=== PATIENT | male | born 1995 | race African-American/Black ===

== ENCOUNTER 2020-09-16 09:52 | Outpatient (CLI) | payer OTHER ==
[2020-09-16 10:52] VITALS: BP 146/107
--- NOTE | 2020-09-16 10:52 | SLEEP CARE CONSULTATION ---
Information from patient questionnaire entered by Birdie Mars. I have reviewed and concur with the information entered by Birdie Mars. This document represents the service I personally performed and the decisions made by me, Molly Harrell ARNP. History of Present Illness Service Date and Time: 09/16/2020 0952 Reason for Visit: New patient Chief Complaint: reports: Unrefreshed sleep, Snoring, Excessive daytime sleepiness, Observed pauses in breathing, Fatigue, Frequent awakenings at night Date of Onset: 10 years Usual bedtime: 10 pm Time it takes to fall asleep: 2 minutes Snores at night: Yes Observed to quit breathing while asleep: Yes Sleeps alone due to snoring: Yes Number of times waking at night: 1 Reasons for waking at night: reports: Snoring, Bathroom Toss, Turn, or Twitch while sleeping: No Recalls having dreams: Yes Usually gets out of bed at: 6 am Feels refreshed in the morning: No Morning headache: No Sleepy or fatigued during the day: Yes Ever fallen asleep while driving: No (some drowsy driving with long drives) Takes day naps: No Dreams during day naps: Yes Prior sleep studies: No Additional HPI information: I had the pleasure of seeing DURGA CLARKE today regarding the possibility of him having a sleep disorder. His current complaints are excessive daytime sleepiness, fatigue, frequent night awakenings, observed pauses in breathing, snoring and unrefreshed sleep. He has borderline hypertension and is not on medication at this time. His snoring is loud and frequent, roommates have requested different room. He has had some pauses in breathing at night. He can feel rested in the morning but he is tire during the day. He gets up a few times a night. He changes shifts for his job from day to night regularly, he states "it is all over the place". - Parasomnia Symptoms Ever been unable to move upon waking from sleep: No Walks in sleep: No Talks in sleep: No Ever acted out dreams in sleep: No Ever felt weak in the knees when startled or emotional: No Bothered by creepy, crawly, restless sensations in legs: No Problems with memory or concentration: No Subjective Initial [place] Sleepiness Scale score: 18 (in 2020) Past Medical History Past Medical History: reports: Other (blood pressure is on borderline for hypertension) Social History The patient's occupation is a Active . Patient is Single and lives in [place]. Have you smoked in the past 12 months: Yes Cigarettes per day (20/pack): 2 Years of smokin Smoking Pack Years: 0.2 Alcohol use: Yes Alcohol amount and frequency: 3 cups 4 times a week Caffeine use: No Family History Family history of sleep disordered breathing: Yes Family Hx Sleep Apnea: Mother: Snoring, Grandparent: Snoring Allergies and Home Medications Drug allergies reviewed: Yes (NKDA) Home medication list reviewed: Yes (no daily medication) Review of Systems Cardiovascular: reports: high blood pressure (borderline) Gastrointestinal: denies: heartburn Neurological: denies: headaches Psychiatric: denies: Attention Deficit Hyperactivity, anxiety, depression, mood disorder Ear/Nose/Throat: reports: nasal congestion, sinus problems. denies: tonsillectomy, wisdom teeth removed Immunologic: reports: allergies to food or environment Physical Exam Blood Pressure: 146/107 Cuff size: wrist Heart Rate: 94 O2 Saturation: 98 Height: 6 ft 1 in Weight: 265 lb Body Mass Index: 34.9 BMI Classification: Obese Neck circumference: 17.5 (inches) Nostrils: patent to airflow Mouth and throat: narrow oropharynx Soft palate: long Hard palate: normal Uvula: normal Uvula visualization: 100% Mallampati Class I Tongue: normal in size Tonsils: 2+ Chin and jaw: normal size and position Neck: normal w/o lymphadenopathy or thyromegaly Heart: regular rate and rhythm Lungs: clear bilaterally Impression and Plan 1. Suspected Obstructive Sleep Apnea-Hypopnea Syndrome, as suggested by a history of loud and irregular snoring, observed cessation of breath while asleep, frequent awakening during the night, unrefreshed sleep, and excessive daytime sleepiness. Narrow oropharynx and obesity are common predisposing factors for obstructive sleep apnea-hypopnea syndrome. I recommend proceeding to polysomnography to confirm the diagnosis and to assess severity. If the patient has significant sleep disordered breathing, a manual CPAP titration study will also be performed to find the optimal treatment pressure. I informed the patient of what the sleep studies involve and after some discussion, obtained agreement to proceed. The pathophysiology of obstructive sleep apnea-hypopnea syndrome was discussed with the patient and health risks of cardiovascular and cerebrovas cular disease if not treated. 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 Patient agreed to plan. * Schedule polysomnography +- manual CPAP titration study and return in 1-2 weeks after the study to discuss result and initiate therapy. * Avoid long distance driving or driving when feeling sleepy. * Avoid alcohol, sedative and muscle relaxant around bedtime. * Attempt to lose weight. * Review instructions provided by trained office staff on how to prepare for the sleep study. * Return for follow-up after sleep study completed. Counseling Topics: Weight loss health impact Visit Type: In Office Time Spent with Patient (minutes): 30 Provider Statement: I spent 100% of the Face to Face Visit with the patient with greater than 50% spent counseling the patient and coordination of care.
== END 2020-09-16 09:53 | disposition home or self-care (01) ==
LOC: SC 09:52
PROVIDERS: ATTEND Nurse Practitioner Family
DX: G47.10 Hypersomnia, unspecified (principal); G47.8 Other sleep disorders; R06.83 Snoring; R06.81 Apnea, not elsewhere classified; F17.210 Nicotine dependence, cigarettes, uncomplicated; E66.9 Obesity, unspecified; Z68.34 Body mass index [BMI] 34.0-34.9, adult
CPT/HCPCS: 99203; 99212

== ENCOUNTER 2021-07-06 17:11 | Emergency (ER) | payer OTHER ==
[2021-07-06 17:35] LABS: RAPID STREP SCREEN Negative (Negative)
[2021-07-06] MEDS ORDERED: IBUPROFEN 800 MG TABLET PO STA (19:27)
[2021-07-06] MEDS ORDERED: PSEUDOEPHEDRINE 30 MG TABLET PO STA (19:27)
[2021-07-06] MEDS ORDERED: DEXAMETHASONE 10 MG/ML VIAL PO STA (19:27)
--- NOTE | 2021-07-06 19:35 | ED Physician Documentation ---
PD HPI URI - Stated complaint Stated Complaint: SORE THROAT/HEADACHE/BEATRIS/NAUSEA - Chief complaint Chief Complaint: Heent - History obtained from History obtained from: Patient - History of Present Illness Timing details: Gradual onset Pain level max: 7 Pain level now: 5 Associated symptoms: No: Dyspnea, NVD - Additional information Additional information: 26-year-old male presents to the emergency department complaining of a sore throat nasal congestion and dry cough for the past several days. Nasal drainage as well. Worse with swallowing, nothing makes it better. Review of Systems Nose: reports: Rhinorrhea / runny nose, Congestion Throat: reports: Sore throat GI: denies: Vomiting, Diarrhea Skin: denies: Rash Musculoskeletal: denies: Neck pain, Back pain Neurologic: denies: Headache PD PAST MEDICAL HISTORY - Past Medical History Past Medical History: Yes Cardiovascular: None Respiratory: None Neuro: Headaches Endocrine/Autoimmune: None GI: None : None HEENT: None Psych: None Musculoskeletal: None Derm: None - Past Surgical History Past Surgical History: No - Present Medications Home Medications: Ambulatory Orders Medication Instructions Recorded Confirmed Cetirizine HCl/Pseudoephedrine 1 each PO BID PRN #30 ea 07/06/21 [Zyrtec-D Tablet] Ibuprofen [Motrin] 800 mg PO Q8H PRN #30 tablet 07/06/21 - Allergies Allergies/Adverse Reactions: Allergies Allergy/AdvReac Type Severity Reaction Status Date / Time No Known Drug Allergies Allergy Verified 07/06/21 17:20 - Social History Does the pt smoke?: No Smoking Status: Never smoker Does the pt drink ETOH?: No Does the pt have substance abuse?: No - Immunizations Immunizations are current?: Yes - POLST Patient has POLST: No PD ED PE NORMAL - Vitals Vital signs reviewed: Yes - General General: Alert and oriented X 3, No acute distress - HEENT HEENT: Moist mucous membranes, Other (Posterior oropharyngeal erythema without tonsillar exudate. Uvula midline. Normal phonation. No trismus.) - Neck Neck: Supple, no meningeal sign, No adenopathy - Cardiac Cardiac: RRR, Strong equal pulses - Respiratory Respiratory: No respiratory distress, Clear bilaterally - Abdomen Abdomen: Soft, Non tender, Non distended - Derm Derm: Warm and dry, No rash - Neuro Neuro: Alert and oriented X 3 - Psych Psych: Normal mood, Normal affect Results - Vitals Vitals: Vital Signs - 24 hr 07/06/21 19:55 Heart Rate 107 H Respiratory 20 Rate Blood Pressure 209/107 H O2 Saturation 96 Oxygen O2 Source Room air - Labs Labs: Microbiology 07/06/21 17:20 Group A Strep Throat Culture - Preliminary Throat Laboratory Tests 07/06/21 17:20 Group A Strep Rapid Negative PD MEDICAL DECISION MAKING - ED course Complexity details: reviewed results, considered differential, d/w patient ED course: 26-year-old male with what appears to be a viral upper respiratory infection and pharyngitis. Given dexamethasone for swelling. We will continue supportive care and have him follow-up with his doctor for further care. Rapid strep is negative. Patient counseled regarding signs and symptoms for which I believe and urgent re-evaluation would be necessary. Patient with good understanding of and agreement to plan and is comfortable going home at this time This document was made in part using voice recognition software. While efforts are made to proofread this document, sound alike and grammatical errors may occur. Departure - Departure Disposition: 01 Home, Self Care Clinical Impression: Viral URI, Viral pharyngitis Condition: Good Instructions: ED Pharyngitis Viral, ED Viral Syndrome Follow-Up: ANGEL GEE MD [Primary Care Provider] - Within 1 week Prescriptions: Ibuprofen [Motrin] 800 mg PO Q8H PRN #30 tablet PRN Reason: PAIN &/OR FEVER Cetirizine HCl/Pseudoephedrine [Zyrtec-D Tablet] 1 each PO BID PRN #30 ea PRN Reason: nasal congestion Comments: Your prescriptions were sent to [facility] in [place]. Please follow-up with your doctor for further care. Drink plenty of fluids and rest. Return if you worsen. Your rapid strep test was negative. If your throat culture is positive, we will call you for antibiotics. You have a Covid test pending. You need to self quarantine until the result is done and negative. The results should be done in 24-48 hours. We will call with a positive result, the fastest way to get a negative result for confirmation though is to go to the hospital website at [email or web address], click on the my [facility] tab and sign up for the patient portal. If any of your friends and/or family need to be tested, they can call the hospital at [phone] for an appointment to have their Covid test. Discharge Date/Time: 07/06/21 19:57
[2021-07-06 19:56] VITALS: BP 209/107
== END 2021-07-06 19:57 | disposition home or self-care (01) ==
LOC: ED 17:11
DX: J06.9 Acute upper respiratory infection, unspecified (principal); J02.9 Acute pharyngitis, unspecified; Z20.822 Contact with and (suspected) exposure to COVID-19
CPT/HCPCS: 87070; 87430; 87635; 99283; A9270

== ENCOUNTER 2023-09-19 14:54 | Emergency (ER) | payer OTHER ==
--- NOTE | 2023-09-19 16:14 | XRAY Report ---
PROCEDURE: Chest 2V INDICATIONS: COUGH/SOA TECHNIQUE: 2 views of the chest were acquired. COMPARISON: None. FINDINGS: Surgical changes and devices: None. Lungs and pleura: No pleural effusions or pneumothorax. Elevation of the right hemidiaphragm. Lungs are clear. Mediastinum: Mediastinal contours appear normal. Heart size is enlarged. Bones and chest wall: No suspicious bony lesions. Overlying soft tissues appear unremarkable. IMPRESSION: Cardiomegaly. The lungs are clear. Reviewed by: Otto Gates MD on 09/19/2023 4:13 PM PDT Approved by: Otto Gates MD on 09/19/2023 4:13 PM PDT Station ID: [id number]
[2023-09-19 16:27] LABS: B. PARAPERTUSSIS- RESP PCR PAN NOT DETECTED; B. PERTUSSIS- RESP PCR PANEL NOT DETECTED; C. PNEUMONIAE- RESP PCR PANEL NOT DETECTED; CORONAVIRUS 229E-RESP PCR NOT DETECTED; CORONAVIRUS HKU1-RESP PCR NOT DETECTED; CORONAVIRUS NL63-RESP PCR NOT DETECTED; CORONAVIRUS OC43-RESP PCR NOT DETECTED; HUMAN METAPNEUMOVIRUS NOT DETECTED; INFLUENZA A- RESP PCR PANEL NOT DETECTED; INFLUENZA B - RESP PCR PANEL NOT DETECTED; M. PNEUMONIAE- RESP PCR PANEL NOT DETECTED; PARAINFLUENZA VIRUS 1 NOT DETECTED; PARAINFLUENZA VIRUS 2 NOT DETECTED; PARAINFLUENZA VIRUS 3 DETECTED; PARAINFLUENZA VIRUS 4 NOT DETECTED; RHINOVIRUS/ENTEROVIRUS NOT DETECTED; RSV- RESP PCR PANEL NOT DETECTED; SARS-CoV-2 -RESP PCR PANEL NOT DETECTED
--- NOTE | 2023-09-19 18:22 | ED Physician Documentation ---
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 He denies any fevers. He states his feet and legs were swollen this morning when he woke up. He states that he likely has sleep apnea but has never been diagnosed. Does not use a CPAP machine. States he does not routinely use any medications at home. Does have an albuterol inhaler. He does vape. Does not have any cardiac history. No abdominal pain, nausea, vomiting. No rashes. He states that he has had a small amount of diarrhea, nonbloody. Review of Systems Constitutional: denies: Fever, Chills Throat: denies: Sore throat Cardiac: denies: Chest pain / pressure, Palpitations, Calf pain Respiratory: reports: Dyspnea : denies: Dysuria PD PAST MEDICAL HISTORY - Past Medical History Past Medical History: Yes Cardiovascular: None Respiratory: None Neuro: Headaches Endocrine/Autoimmune: None GI: None : None HEENT: None Psych: None Musculoskeletal: None Derm: None - Past Surgical History Past Surgical History: No - Present Medications Home Medications: Ambulatory Orders Medication Instructions Recorded Confirmed No Known Home Medications 09/19/23 09/19/23 - Allergies Allergies/Adverse Reactions: Allergies Allergy/AdvReac Type Severity Reaction Status Date / Time No Known Drug Allergies Allergy Verified 09/19/23 15:13 - Social History Does the pt smoke?: No Smoking Status: Never smoker Does the pt drink ETOH?: No Does the pt have substance abuse?: No - Immunizations Immunizations are current?: Yes - POLST Patient has POLST: No PD ED PE NORMAL - Vitals Vital signs reviewed: Yes - General General: Alert and oriented X 3, No acute distress, Well developed/nourished - HEENT HEENT: Moist mucous membranes - Neck Neck: Supple, no meningeal sign - Cardiac Cardiac: RRR, No murmur, Strong equal pulses - Respiratory Respiratory: No respiratory distress, Clear bilaterally - Abdomen Abdomen: Soft, Non tender, Non distended - Derm Derm: Warm and dry - Extremities Extremities: Other (2+ B LE pitting edema) - Neuro Neuro: Alert and oriented X 3 - Psych Psych: Normal mood, Normal affect Results - Vitals Vitals: Vital Signs - 24 hr 09/19/23 09/19/23 09/19/23 15:04 18:15 18:40 Temperature 37.0 C Heart Rate 127 H 125 H 127 H Respiratory 16 29 H 24 Rate Blood Pressure 166/130 H 188/143 H O2 Saturation 98 98 09/19/23 09/19/23 09/19/23 20:30 21:00 21:45 Temperature Heart Rate 120 H 121 H 121 H Respiratory 34 H 33 H 20 Rate Blood Pressure 190/140 H 183/142 H 182/117 H O2 Saturation 98 99 97 09/19/23 09/19/23 22:00 22:30 Temperature Heart Rate 124 H 122 H Respiratory 33 H 25 H Rate Blood Pressure 190/123 H 176/127 H O2 Saturation 97 95 Oxygen O2 Source Room air - EKG (time done) 1839 EKG releavant findings:: EKG personally interpreted by author of this note. Relevant findings are: Rate: Rate (enter#) (125) Rhythm: Sinus tachycardia [place]: Normal Intervals: Normal PA QRS: Normal Ischemia: Normal ST segments - Labs Labs: Laboratory Tests 09/19/23 09/19/23 09/19/23 15:11 18:25 18:25 WBC 7.6 RBC 4.42 L Hgb 14.8 Hct 45.4 MCV 102.7 H MCH 33.5 H MCHC 32.6 RDW 13.2 Plt Count 338 MPV 8.5 Neut # (Auto) 5.4 Lymph # (Auto) 1.0 L [place] # (Auto) 1.0 Eos # (Auto) 0.2 Baso # (Auto) 0.1 Absolute Nucleated RBC 0.00 Nucleated RBC % 0.0 ESR Sodium 138 Potassium 3.6 Chloride 102 Carbon Dioxide 27 Anion Gap 9.0 BUN 12 Creatinine 1.4 H Estimated GFR (MDRD) 74 L Glucose 89 Calcium 9.8 Total Bilirubin 2.9 H AST 32 ALT 20 Alkaline Phosphatase 51 Troponin I High Sens 69.9 H* C-Reactive Protein B-Natriuretic Peptide Total Protein 6.9 Albumin 4.3 Globulin 2.6 Albumin/Globulin Ratio 1.7 Lipase 19 Nasal Adenovirus (PCR) NOT DETECTED Nasal B. parapertussis DNA (PCR) NOT DETECTED Nasal Coronavir 229E PCR NOT DETECTED Nasal Coronavir HKU1 PCR NOT DETECTED Nasal Coronavir NL63 PCR NOT DETECTED Nasal Coronavir OC43 PCR NOT DETECTED Nasal Enterovir/Rhinovir PCR NOT DETECTED Nasal Influenza B PCR NOT DETECTED Nasal Influenza A PCR NOT DETECTED Nasal Parainfluen 1 PCR NOT DETECTED Nasal Parainfluen 2 PCR NOT DETECTED Nasal Parainfluen 3 PCR DETECTED A Nasal Parainfluen 4 PCR NOT DETECTED Nasal RSV (PCR) NOT DETECTED Nasal B.pertussis DNA PCR NOT DETECTED Nasal C.pneumoniae (PCR) NOT DETECTED Edison Human Metapneumo PCR NOT DETECTED Nasal M.pneumoniae (PCR) NOT DETECTED Nasal SARS-CoV-2 (PCR) NOT DETECTED 09/19/23 09/19/23 09/19/23 18:25 18:25 20:55 WBC RBC Hgb Hct MCV MCH MCHC RDW Plt Count MPV Neut # (Auto) Lymph # (Auto) [place] # (Auto) Eos # (Auto) Baso # (Auto) Absolute Nucleated RBC Nucleated RBC % ESR 1 Sodium Potassium Chloride Carbon Dioxide Anion Gap BUN Creatinine Estimated GFR (MDRD) Glucose Calcium Total Bilirubin AST ALT Alkaline Phosphatase Troponin I High Sens C-Reactive Protein 1.0 H B-Natriuretic Peptide 1795 H Total Protein Albumin Globulin Albumin/Globulin Ratio Lipase Nasal Adenovirus (PCR) Nasal B. parapertussis DNA (PCR) Nasal Coronavir 229E PCR Nasal Coronavir HKU1 PCR Nasal Coronavir NL63 PCR Nasal Coronavir OC43 PCR Nasal Enterovir/Rhinovir PCR Nasal Influenza B PCR Nasal Influenza A PCR Nasal Parainfluen 1 PCR Nasal Parainfluen 2 PCR Nasal Parainfluen 3 PCR Nasal Parainfluen 4 PCR Nasal RSV (PCR) Nasal B.pertussis DNA PCR Nasal C.pneumoniae (PCR) Edison Human Metapneumo PCR Nasal M.pneumoniae (PCR) Nasal SARS-CoV-2 (PCR) - Rads (name of study) cxr Relevant Findings:: Final report received, See rad report PD Medical Decision Making - ED course Complexity details: reviewed results, re-evaluated patient, considered d ifferential, d/w patient, d/w family, d/w physician practice consultant ED course: 28-year-old male presents to the emergency department with viral URI symptoms for the past several weeks. He is complaining of new onset of bilateral pedal and lower extremity edema that started today. Chest x-ray has significant cardiomegaly. BNP is significantly elevated. Mild high-sensitivity troponin elevation. EKG is consistent with sinus tachycardia. Patient denies any other past medical history. 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 No cardiology available here. Patient will need transfer for further care. Discussed the case with Dr. Hay, cardiology at [facility]. Recommends transfer for echocardiogram and cardiology consultation. There are no beds available for [facility] however. [facility] did have a bed, spoke with Dr. Solis, cardiology who graciously accepts in transfer. Patient was given a dose of lisinopril, 10 mg orally here for hypertension as well as 40 mg of IV Lasix. COBRA forms completed. Patient transferred. 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
[2023-09-19 18:29] LABS: BASOPHILS # (AUTO) 0.1 10^3/uL (0.0-0.1); BASOPHILS % (AUTO) 0.8 %; EOSINOPHILS # (AUTO) 0.2 10^3/uL (0.0-0.7); EOSINOPHILS % (AUTO) 2.1 %; HCT - HEMATOCRIT 45.4 % (42.0-52.0); HGB - HEMOGLOBIN 14.8 g/dL (14.0-18.0); LYMPHOCYTES % (AUTO) 12.9 %; MEAN CORPUSCULAR HEMOGLOBIN 33.5 pg (27.0-31.0); MEAN CORPUSCULAR HGB CONC 32.6 g/dL (32.0-36.0); MEAN CORPUSCULAR VOLUME 102.7 fL (80.0-94.0); MEAN PLATELET VOLUME 8.5 fL (7.4-11.4); NEUTROPHILS # (AUTO) 5.4 10^3/uL (1.5-6.6); NEUTROPHILS % (AUTO) 70.9 %; PLT - PLATELET COUNT 338 10^3/uL (130-450); RED BLOOD COUNT 4.42 10^6/uL (4.70-6.10); RED CELL DISTRIBUTION WIDTH 13.2 % (12.0-15.0); WHITE BLOOD COUNT 7.6 x10^3/uL (4.8-10.8)
[2023-09-19] MEDS: SODIUM CHLORIDE 0.9% 1,000 ML IV STA (18:32)
[2023-09-19] MEDS: IPRATROPIUM/ALBUTEROL 3 ML NEB INH STA (18:40)
[2023-09-19 18:52] LABS: ALBUMIN 4.3 g/dL (3.2-5.5); ALBUMIN/GLOBULIN RATIO 1.7 (1.0-2.2); BILIRUBIN,TOTAL 2.9 mg/dL (0.2-1.0); CALCIUM 9.8 mg/dL (8.5-10.3); CREATININE 1.4 mg/dL (0.6-1.3); POTASSIUM 3.6 mmol/L (3.5-4.5); TOTAL PROTEIN 6.9 g/dL (6.4-8.9)
[2023-09-19 18:55] LABS: TROPONIN I HIGH SENSITIVITY 69.9 ng/L (2.3-19.7)
[2023-09-19] MEDS: lisinopriL 5 MG TABLET PO STA (20:51)
[2023-09-19] MEDS: FUROSEMIDE 40 MG/4 ML VIAL IVP STA (22:12)
[2023-09-19 23:25] LABS: BILIRUBIN,URINE NEGATIVE (NEGATIVE); GLUCOSE, URINE (UA) NEGATIVE (NEGATIVE); KETONES,URINE (UA) NEGATIVE (NEGATIVE); LEUKOCYTE ESTERASE, URINE NEGATIVE (NEGATIVE); NITRITE,URINE NEGATIVE (NEGATIVE); OCCULT BLOOD,URINE TRACE-INTA (NEGATIVE); PH,URINE 6.5 PH (5.0-7.5); PROTEIN,URINE NEGATIVE (NEGATIVE); UROBILINOGEN,URINE 0.2 (NORMAL) E.U./dL (NORMAL)
[2023-09-19 23:40] LABS: CLARITY,URINE CLEAR (CLEAR)
[2023-09-20] MEDS: NITROGLYCERIN 2% PASTE TOP STA (00:30)
[2023-09-20] MEDS: carvediloL 3.125 MG TABLET PO SCH (01:32)
[2023-09-20] MEDS: hydrALAZINE 25 MG TABLET PO SCH (01:32)
[2023-09-20] MEDS: guaiFENesin/CODEINE 5 ML UDC PO STA (02:00)
[2023-09-20 03:36] VITALS: BP 132/79; O2SAT 94
--- NOTE | 2023-09-20 03:47 | ED Physician Documentation ---
ED Addendum - Addendum Addendum: 09/20/23 03:34 The patient was signed out to me at change of shift, pending transfer after presenting to the emergency department with persistent cough and exertional dyspnea. The patient was found to have marked cardiomegaly, lower extremity edema, a significantly elevated BNP at 1700, elevated troponin at 69, elevated creatinine at 1.4 without corresponding BUN elevation, persistent tachycardia, hypertension, and normal O2 saturation on room air. Dr. Parrish had spoken with Dr. Solis for cardiology at [facility] as well as cardiology [facility] and both had agreed that the patient to come to a center with cardiology and the ability to do echo and a more specific cardiology workup, neither of which we have at our hospital. [facility] had informed us that they had beds and that they would notify the hospitalist that Dr. Solis had accepted the patient and the hospitalist needed to handle the primary admission. Upon calling the [facility] transfer center, we were informed that the hospitalist was questioning why the patient should be transferred and was reviewing the case. We did not hear from them for some time and so we called the transfer center back and they stated that the hospitalist now wanted another set of vitals. These were given and we still did not hear anything further from [facility] for another hour and a half. At this point, it had been over 3 hours since the patient's case had been discussed with cardiology by Dr. Parrish, with no further progress toward transfer. We did request to know why the hospitalist was not moving forward with admission. The transfer center stated that they would have their hospitalist call to talk to me; however, the hospitalist never called and instead, the transfer center called back to tell us that the hospitalist had refused the patient, stating that "he might need a cardiothoracic surgeon" and that "something really big may be wrong here that we cannot handle". The hospitalist had refused to talk to me and at this point, I did call Dr. Solis and explained the situation to her. Dr. Solis was initially going to speak with the hospitalist herself but ultimately, ended up calling back to take the admission herself. She made some recommendations for Coreg and hydralazine, which I have ordered here. I had also placed an inch of nitroglycerin paste and this did improve the patient's blood pressure, although he is still high. Shortly after my conversation with Dr. Solis, Dr. Mercer called back despite having communicated through the transfer center that she would not take the patient. She now stated that she did not call back because she had wanted an echocardiogram first, though this was not at all what had been communicated by the transfer center. I did reiterate to her that we do not have echocardiogram tomorrow and we will not be able to do an echo overnight either. She then stated that she would just go ahead and take the patient, but I have advised her that Dr. Solis has already accepted the patient and is doing the admission. I have advised Dr. Mercer that if she would like to talk to Dr. Solis herself, she may certainly do so. Dr. Mercer has excused her unwillingness to speak with me by phone about a patient accepted by the specialist, by saying that "we never talk to people when we want other tests done". Ultimately, the patient was transferred to [facility] via ambulance under acceptance by Dr. Solis. 09/20/23 03:47
== END 2023-09-20 03:34 | disposition short-term general hospital (02) ==
LOC: ED 14:54
DX: B33.24 Viral cardiomyopathy (principal); I51.4 Myocarditis, unspecified; I51.7 Cardiomegaly; R60.0 Localized edema; F17.290 Nicotine dependence, other tobacco product, uncomplicated
CPT/HCPCS: 36415; 80053; 81001; 81003; 83690; 83880; 84484; 85025; 85651; 86140; 87086; 87633; 93005; 94640; 94664; 96374; 99285